=== PATIENT | female | born 1990 | race Caucasian/White ===

== ENCOUNTER 2017-12-07 20:38 | Inpatient (IN) | payer BC ==
[2017-12-07] MEDS ORDERED: Docusate 100 MG CAP PO PRN (21:03)
[2017-12-07] MEDS ORDERED: Acetaminophen 500 MG TAB PO PRN (21:03)
[2017-12-07] MEDS ORDERED: HYDROcodone/Acetaminophen 5/325 mg Tablet PO PRN ×2 (21:03)
[2017-12-07] MEDS ORDERED: NS / Oxytocin 40 units/1000ml 1,000 ML IV PRN (21:03)
[2017-12-07] MEDS ORDERED: Butorphanol Tartrate 1 MG/ML VIAL SLOW IVP PRN (21:03)
[2017-12-07] MEDS ORDERED: Diphenoxylate HCl/Atropine Tablet PO PRN ×2 (21:03)
[2017-12-07] MEDS ORDERED: Ondansetron HCl/PF 4 MG/2 ML Vial IVP PRN (21:03)
[2017-12-07] MEDS ORDERED: Zolpidem Tartrate 5 MG TAB PO PRN (21:03)
[2017-12-07] MEDS ORDERED: Misoprostol 200 MCG TAB PR PRN (21:03)
[2017-12-07] MEDS ORDERED: NS w/ Oxytocin 10 units 500 ML IV SCH (21:03)
[2017-12-07] MEDS ORDERED: Ibuprofen 800 MG TAB PO PRN (21:03)
[2017-12-07] MEDS ORDERED: Promethazine HCl 25 MG/ML VIAL IM PRN (21:03)
[2017-12-07] MEDS ORDERED: Lidocaine 1% (PF) 30 ML VIAL SC PRN (21:03)
[2017-12-07] MEDS: Lactated Ringer's 1,000 ML IV SCH (21:35)
[2017-12-07 22:07] LABS: Hemoglobin 11.5 g/dL (12.0-16.0); Mean Corpuscular HGB CONC 34.6 g/dL (32.0-36.0); Mean Corpuscular Hemoglobin 32.5 pg (27.0-31.0); Mean Corpuscular Volume 93.8 fl (81.0-99.0); Mean Platelet Volume 7.5 fL (7.4-10.4); Platelet Count 246 thou/uL (130-400); RBC Distribution Width 12.1 % (11.5-14.5); Red Blood Cell (RBC) Count 3.54 mill/uL (4.20-5.40); White Blood Cell (WBC) Count 12.4 thou/uL (4.8-10.8)
[2017-12-07 22:22] VITALS: BMI 32.5
[2017-12-07] MEDS: Misoprostol 100 MCG TAB VAG SCH (22:30)
[2017-12-07 22:43] LABS: Syphilis Antibody Nonreactive (Nonreactive); Syphilis Antibody Index 0.05 S/CO (<1.00 Non-Reactive)
[2017-12-07 22:53] LABS: HBSAg Index 0.11 S/CO (0-0.99); Hep B Surf Ag Non-Reactive S/CO (NonReactive)
[2017-12-08] MEDS: Misoprostol 100 MCG TAB VAG SCH ×5 (00:04→21:21)
[2017-12-08] MEDS: Lactated Ringer's 1,000 ML IV SCH ×5 (04:40→16:59)
[2017-12-08] MEDS ORDERED: DISCONTINUE ALL PREVIOUS NARCOTICS FS SCH (07:15)
[2017-12-08] MEDS ORDERED: Bupivacaine 0.75% 13.4 ML, fentaNYL Citrate/PF 400 MCG in Sodium Chloride 0.9% 78.6 ML EPIDURAL SCH ×2 (07:15→14:45)
[2017-12-08] MEDS ORDERED: Bupivacaine 0.5% 20 ML, fentaNYL Citrate/PF 400 MCG in Sodium Chloride 0.9% 72 ML EPIDURAL SCH ×2 (07:30→09:45)
[2017-12-08] MEDS ORDERED: Naloxone HCl 0.4 mg/ml Vial IVP PRN ×2 (09:36)
[2017-12-08] MEDS ORDERED: ePHEDrine/0.9% NaCl/PF SYRINGE 50 mg/10 ml SLOW IVP PRN (09:36)
[2017-12-08] MEDS ORDERED: Eucerin (Mineral Oil/Petrolatum,White) 30 gm Jar TOP PRN (09:36)
[2017-12-08] MEDS ORDERED: Promethazine HCl 25 MG/ML VIAL IM PRN (09:36)
[2017-12-08] MEDS ORDERED: Ondansetron HCl/PF 4 MG/2 ML Vial IVP PRN ×2 (09:36→19:13)
[2017-12-08] MEDS ORDERED: Acetaminophen 325 MG TAB PO PRN (09:36)
[2017-12-08] MEDS ORDERED: Lactated Ringer's 500 ML IV PRN (09:36)
[2017-12-08] MEDS ORDERED: diphenhydrAMINE 50 MG/ML VIAL IVP PRN (09:36)
[2017-12-08] MEDS ORDERED: Communication Order-Pharmacy FS SCH (09:45)
[2017-12-08] MEDS ORDERED: Fentanyl 4mcg/Marcaine 0.1% Cassette 100 ML EPIDURAL SCH (09:45)
[2017-12-08] MEDS ORDERED: Fentanyl 100 MCG/2 ML VIAL ONE (15:54)
[2017-12-08] MEDS ORDERED: Milk Of Magnesia 30 ML UDCUP PO PRN (19:13)
[2017-12-08] MEDS ORDERED: Adacel (T-DAP) 0.5 ML VIAL IM ONE (19:13)
[2017-12-08] MEDS ORDERED: diphenhydrAMINE 25 MG CAP PO PRN (19:13)
[2017-12-08] MEDS ORDERED: Zolpidem Tartrate 5 MG TAB PO PRN (19:13)
[2017-12-08] MEDS ORDERED: Acetaminophen/Codeine 30-300mg Tablet PO PRN ×2 (19:13)
[2017-12-08] MEDS ORDERED: Preparation H Ointment 28 GM TUBE PR PRN (19:13)
[2017-12-08] MEDS ORDERED: Benzocaine/Menthol 20-0.5% 60 ML CAN TOP PRN (19:13)
[2017-12-08] MEDS ORDERED: Bisacodyl 10 MG SUPP PR PRN (19:13)
[2017-12-08] MEDS ORDERED: Lanolin Ointment 7 GM TUBE TOP PRN (19:13)
[2017-12-08] MEDS ORDERED: NS / Oxytocin 40 units/1000ml 1,000 ML IV SCH (19:15)
[2017-12-08] MEDS: Docusate Calcium (SURFAK) 240 MG CAP PO SCH (21:43)
[2017-12-08] MEDS: Ibuprofen 800 MG TAB PO SCH (21:44)
[2017-12-09] MEDS: Ibuprofen 800 MG TAB PO SCH ×3 (06:33→21:56)
[2017-12-09] MEDS: Docusate Calcium (SURFAK) 240 MG CAP PO SCH ×2 (08:44→21:56)
[2017-12-09] MEDS: Prenatal Vitamin 1 TAB PO SCH (08:44)
[2017-12-09] MEDS: Ferrous Sulfate 325 MG TAB PO SCH ×2 (08:44→18:39)
[2017-12-10] MEDS: Ibuprofen 800 MG TAB PO SCH (06:22)
[2017-12-10 08:38] VITALS: BP 119/74; TEMP 98.7
[2017-12-10] MEDS: Ferrous Sulfate 325 MG TAB PO SCH (09:34)
[2017-12-10] MEDS: Docusate Calcium (SURFAK) 240 MG CAP PO SCH (10:24)
[2017-12-10] MEDS: Prenatal Vitamin 1 TAB PO SCH (10:24)
== END 2017-12-10 13:45 | disposition home or self-care (01) | DRG 775 ==
LOC: L&D 20:38 → 3SE 12-08 20:34
PROVIDERS: ADMIT Obstetrics & Gynecology; ATTEND Obstetrics & Gynecology
PROC: 10E0XZZ Delivery of Products of Conception, External Approach (ICD-10-PCS; principal; 2017-12-08)
PROC: 10907ZC Drainage of Amniotic Fluid, Therapeutic from Products of Conception, Via Natural or Artificial Opening (ICD-10-PCS; 2017-12-08)
PROC: 3E0P7VZ Introduction of Hormone into Female Reproductive, Via Natural or Artificial Opening (ICD-10-PCS; 2017-12-08)
DX: O70.20 Third degree perineal laceration during delivery, unspecified (principal); Z3A.39 39 weeks gestation of pregnancy; Z37.0 Single live birth
CPT/HCPCS: 51702; 85027; 86780; 86850; 86900; 86901; 87340; J2001; J3010; J3490; J7050